=== PATIENT | male | born 1950 | race Hispanic/Latino ===

== ENCOUNTER → 2018-04-24 | Outpatient (CLI) | payer OTHER | END | disposition home or self-care (01) | LOC: OIH 14:20 | PROVIDERS: ATTEND Family Medicine | DX: S22.32XA Fracture of one rib, left side, initial encounter for closed fracture (principal); M16.0 Bilateral primary osteoarthritis of hip; X58.XXXA Exposure to other specified factors, initial encounter; Y93.89 Activity, other specified; Y92.89 Other specified places as the place of occurrence of the external cause; Y99.8 Other external cause status | CPT/HCPCS: 71100; 72170 ==

== ENCOUNTER 2018-11-21 09:33 | Emergency (ER) | payer OTHER ==
[2018-11-21] MEDS ORDERED: BUPIVACAINE/PF 0.5% 30ML VIAL ONE (10:05)
[2018-11-21] MEDS ORDERED: LIDOCAINE HCL 1% 20 ML VIAL ONE (10:05)
[2018-11-21] MEDS ORDERED: TETANUS/DIPHTHERIA TOXOID [ADULT] 0.5 ML VIAL IM ONE (10:05)
[2018-11-21] MEDS ORDERED: CEFAZOLIN SODIUM 1 GM VIAL ONE (10:38)
== END 2018-11-21 11:44 | disposition home or self-care (01) ==
LOC: EDH 09:33
DX: S62.634B Displaced fracture of distal phalanx of right ring finger, initial encounter for open fracture (principal); S61.214A Laceration without foreign body of right ring finger without damage to nail, initial encounter; E78.5 Hyperlipidemia, unspecified; I10 Essential (primary) hypertension; Z90.49 Acquired absence of other specified parts of digestive tract; W23.0XXA Caught, crushed, jammed, or pinched between moving objects, initial encounter; Y93.89 Activity, other specified; Y92.89 Other specified places as the place of occurrence of the external cause; Y99.8 Other external cause status
CPT/HCPCS: 12041; 73140; 90471; 90714; 96372; 99284; J0690; J3490

== ENCOUNTER 2020-08-26 11:32 | Emergency (ER) | payer OTHER ==
[2020-08-26] MEDS ORDERED: KETOROLAC TROMETHAMINE 30MG/ML ONE (12:00)
[2020-08-26] MEDS ORDERED: CYCLOBENZAPRINE HCL 10 MG TABLET ONE (12:00)
== END 2020-08-26 12:58 | disposition home or self-care (01) ==
LOC: EDH 11:32
DX: S20.211A Contusion of right front wall of thorax, initial encounter (principal); S40.011A Contusion of right shoulder, initial encounter; E78.5 Hyperlipidemia, unspecified; I10 Essential (primary) hypertension; Z90.49 Acquired absence of other specified parts of digestive tract; W18.39XA Other fall on same level, initial encounter; Y93.89 Activity, other specified; Y92.89 Other specified places as the place of occurrence of the external cause; Y99.8 Other external cause status
CPT/HCPCS: 71101; 73010; 96372; 99284; J1885

== ENCOUNTER → 2024-01-29 | Outpatient (CLI) | payer OTHER | END | disposition home or self-care (01) | LOC: LAB 12:39 | PROVIDERS: ATTEND Internal Medicine Gastroenterology | DX: R10.32 Left lower quadrant pain (principal) | CPT/HCPCS: 36415; 82565; 84520 ==

== ENCOUNTER → 2024-02-11 | Outpatient (CLI) | payer OTHER ==
[~2024-02-11] MED LIST: IOHEXOL 350 MG/ML 100ML INFUS..BTL IV ONE
== END | disposition home or self-care (01) ==
LOC: RAH 10:32
PROVIDERS: ATTEND Surgery
DX: N40.0 Benign prostatic hyperplasia without lower urinary tract symptoms (principal); R10.32 Left lower quadrant pain
CPT/HCPCS: 74177; Q9967

== ENCOUNTER 2024-04-30 12:38 | Emergency (ER) | payer OTHER ==
[~2024-04-30] VITALS: Ht 165.1 cm; Wt 77.1 kg
[2024-04-30 12:44] VITALS: BP 113/66; PULSE 55; RESP 20; TEMP 98.2
[2024-04-30] MEDS ORDERED: IOHEXOL-350 75 ML VIAL IV ONE (13:09)
[2024-04-30 13:12] LABS: BASOPHILS # (AUTO) 0.04 K/uL (0.00-0.20); BASOPHILS % (AUTO) 0.5 % (0.0-5.0); EOSINOPHILS % (AUTO) 1.2 % (0.0-8.0); HEMATOCRIT 42.9 % (42-54); IMMATURE GRANULOCYTE ABSOLUTE 0.01 K/uL (0-1); LYMPHOCYTES # (AUTO) 1.4 K/uL (1.0-4.8); LYMPHOCYTES % (AUTO) 16.4 % (21.0-51.0); MEAN CORPUSCULAR HEMOGLOBIN 30.3 pg (27.0-33.0); MEAN CORPUSCULAR HGB CONC 33.1 g/dL (32.0-36.0); MEAN CORPUSCULAR VOLUME 91.5 fL (79-99); MONOCYTES % (AUTO) 11.6 % (3.0-13.0); NEUTROPHILS # (AUTO) 5.9 K/uL (1.8-7.7); NEUTROPHILS % (AUTO) 70.2 % (40.0-77.0); PLATELET COUNT (AUTO) 170 K/uL (130-400); RED BLOOD CELL COUNT(AUTO) 4.69 MIL/uL (4.50-6.20); RED CELL DISTRIBUTION WIDTH 12.7 % (11.0-15.5); WHITE BLOOD COUNT (AUTO) 8.4 K/uL (4.8-10.8)
--- NOTE | 2024-04-30 13:16 | ERN ---
General Chief Complaint: Mechanical Fall Stated Complaint: FELL OFF THE LADDER 12FT, BACK PAIN,BLACKOUT Time Seen by MD: 12:44 History of Present Illness Initial Comments 73-year-old male presents for a fall. Patient was on a ladder cutting trees, he fell 12 ft. He landed on his left side. He did lose consciousness according to witness. Patient came to. He is currently GCS 15, he only complains of left shoulder and left chest wall pain. He denies any other injuries. He is ambulatory. Stable vital signs. Medical history: Dyslipidemia No blood thinners. Allergies: Coded Allergies: No Known Allergies (Unverified Allergy, Unknown, 11/21/18) Past Medical History Past Medical History: High Cholesterol Past Surgical History: None ROS Dictation CONSTITUTIONAL: No chills, no fever, no weakness, no diaphoresis, no malaise. HEAD/FACE: No signs of trauma. EENT: No eye pain, no blurred vision, no tearing, no double vision, no ear pain, no ear discharge, no nose pain, no nasal congestion, no throat pain, no throat swelling, no mouth pain. RESPIRATORY: No cough, no orthopnea, no SOB, no stridor, no wheezing. CARDIOVASCULAR: No chest pain, no edema, no palpitations, no syncope. GASTROINTESTINAL/ABDOMINAL: No abdominal pain, no constipation, no diarrhea, no nausea, no vomiting. GENITOURINARY: No abnormal discharge, no dysuria, no frequent urination, no hematuria. No complaints of pain in the genitals. MUSCULOSKELETAL: Left shoulder left chest wall pain INTEGUMENTARY: No change in color, no change in hair/nails, no dryness, no lesion, no lumps, no rash. NEUROLOGICAL/PSYCH: No anxiety, not depressed, no emotional problem, no headache, no numbness, no pre-existing deficit, no history of seizures, no tremors, no weakness. HEMATOLOGIC/LYMPHATIC: Not anemic, no history of blood clots, no apparent bleeding, no bruising, glands not swollen. All Systems Negative, Except as Noted. Physical Exam Physical Exam Dictation VITAL SIGNS: Reviewed. GENERAL APPEARANCE: Alert, oriented x3, no acute distress, obese. HEAD AND FACE: Non-traumatic. EYES: PERRL, pink conjunctivas, eyelid no trauma, anterior chamber clear. EARS: Pinnas intact and no signs of trauma or erythema. Ear canals clear and no discharge. TMs no erythema. NOSE: No discharge, no bleeding. OROPHARYNX: Mouth normal, teeth no caries, tongue pink. Pharynx clear, no erythema. Tonsils no exudates, no abscesses noted. Mucous membrane moist. NECK: Supple, non-tender, no thyromegaly, no masses, no JVD, no bruits. BREAST: Deferred. CHEST: No tenderness, no crepitus, no paradoxical movement, no retractions. LUNGS: Clear, well-ventilated, symmetric, no rales, no wheezing, no rhonchi, no stridor, good breath sounds bilaterally. HEART: Regular rate, regular rhythm, no murmur, no gallops. VASCULAR: No peripheral edema. ABDOMEN: Soft, positive bowel sounds, nondistended, no guarding, nontender, no rebound, no masses no hepatomegaly, no splenomegaly, no Lag[place]'s sign, no hernias. RECTAL: Deferred. GENITAL: Deferred. NEUROLOGICAL: Normal speech, gross motor function intact, gross sensory function intact. MUSCULOSKELETAL: Neck nontender, full range of motion, back nontender, full range of motion. EXTREMITIES: Nontender, full range of motion. SKIN: Color pink, dry, no turgor, no rash, no lacerations, no abrasions, no contusions. LYMPHATICS: Deferred. Results Laboratory and Microbiology Lab and Micro Result Laboratory Tests Test 04/30/24 13:03 04/30/24 13:43 White Blood Count 8.4 K/uL (4.8-10.8) Red Blood Count 4.69 MIL/uL (4.50-6.20) Hemoglobin 14.2 g/dL (14.0-18.0) Hematocrit 42.9 % (42-54) Mean Corpuscular Volume 91.5 fL (79-99) Mean Corpuscular Hemoglobin 30.3 pg (27.0-33.0) Mean Corpuscular Hemoglobin Concent 33.1 g/dL (32.0-36.0) Red Cell Distribution Width 12.7 % (11.0-15.5) Platelet Count 170 K/uL (130-400) Mean Platelet Volume 10.2 fL (7.5-10.5) Immature Granulocyte % (Auto) 0.1 % (0-1) Neutrophils (%) (Auto) 70.2 % (40.0-77.0) Lymphocytes (%) (Auto) 16.4 % (21.0-51.0) L Monocytes (%) (Auto) 11.6 % (3.0-13.0) Eosinophils (%) (Auto) 1.2 % (0.0-8.0) Basophils (%) (Auto) 0.5 % (0.0-5.0) Neutrophils # (Auto) 5.9 K/uL (1.8-7.7) Lymphocytes # (Auto) 1.4 K/uL (1.0-4.8) Monocytes # (Auto) 1.0 K/uL (0.1-1.0) Eosinophils # (Auto) 0.10 K/uL (0.00-0.70) Basophils # (Auto) 0.04 K/uL (0.00-0.20) Absolute Immature Granulocyte (auto 0.01 K/uL (0-1) Nucleated Red Blood Cells 0.0 % (0.0-0.19) Prothrombin Time 10.7 SEC (9.6-11.6) Prothromb Time International Ratio 0.99 (0.85-1.15) Sodium Level 135 mmol/L (136-145) L Potassium Level 4.2 mmol/L (3.5-5.1) Chloride Level 99 mmol/L (101-111) L Carbon Dioxide Level 31 mmol/L (21-32) Blood Urea Nitrogen 17 mg/dL (7-18) Creatinine 1.2 mg/dL (0.5-1.3) Glomerular Filtration Rate Calc 64 mL/min (>90) Random Glucose 107 mg/dL (70-105) H Total Calcium 8.8 mg/dL (8.5-10.1) Total Creatine Kinase 836 U/L (21-232) *H Troponin I High Sensitivity 14.3 ng/L (4-75) Urine Color LIGHT-YELLOW (YELLOW) Urine Appearance CLEAR (CLEAR) Urine pH 5.0 (5.0-8.0) Urine Specific [place] 1.021 (1.001-1.031) Urine Protein 10 mg/dL (NEGATIVE) H Urine Glucose (UA) NEGATIVE mg/dL (NEGATIVE) Urine Ketones NEGATIVE mg/dL (NEGATIVE) Urine Occult Blood NEGATIVE (NEGATIVE) Urine Nitrate NEGATIVE (NEGATIVE) Urine Bilirubin NEGATIVE mg/dL (NEGATIVE) Urine Urobilinogen 0.2 mg/dL (0.2-1.0) Urine Leukocyte Esterase NEGATIVE Michelle/uL Urine RBC 2-5 /HPF (0-1) H Urine WBC 2-5 /HPF (0-1) H Urine Bacteria None /HPF (None Seen) MDM CC: L shoulder pain, fall Historian: pateint Comorbidities: DLD Limitations: none VSS Differential diagnosis: head injury, shoulder injury, rib fx, multisystem trauma CT head per my independent interpretation shows no acute bleeding CT cervical spine without contrast per my independent interpretation shows no obvious fractures. CT scan of the abdomen and pelvis with contrast shows no acute bleeding or major abnormalities. CBC: Normal. CMP: Stable electrolytes, CK came back at 836, mildly elevated. Given 1 L of normal saline. 15mg IV toradol No life threats at this time due to the trauma. Patient offered observation admission but prefers to go home at this time REASON: fall ORDERING PHYSICIAN: YVONNE KING DO PROCEDURE: HEAD WO - CT HEAD/BRAIN W/O CONTRAST CT HEAD/BRAIN W/O CONTRAST HISTORY: Status post fall COMPARISON: None TECHNIQUE: Multiple sequential axial images of the head were obtained from the base of the skull through vertex. Patient was not given contrast through intravenous route. FINDINGS: The ventricles and extraventricular CSF spaces are dilated consistent with cerebral atrophy. Nonspecific white matter changes seen. There is no midline shift, mass effect or herniation. No acute intracranial bleed is seen. Visualized portion of the paranasal sinuses are grossly within normal limits. IMPRESSION: 1. No acute intracranial bleed is seen. 2. Atrophy with white matter changes. REASON: fall ORDERING PHYSICIAN: YVONNE KING DO PROCEDURE: C SPIN WO - CT CERVICAL SPINE W/O CONTRAST CT CERVICAL SPINE W/O CONTRAST HISTORY: Status post fall COMPARISON: None TECHNIQUE: Multiple sequential axial images of the cervical spine were obtained including post processing sagittal and coronal reconstruction images. Patient was not given contrast through intravenous route. FINDINGS: There is straightening of normal lordotic cervical curvature which may be related to muscle spasm or positioning. There are degenerative changes with cervical spine spondylosis. There is no loss of vertebral height. Evaluation for disc and cord pathology is limited with CT study. No evidence of fracture or dislocation is seen. IMPRESSION: 1. No fracture is seen. DJD with cervical spine spondylosis. REASON: fall ORDERING PHYSICIAN: YVONNE KING DO PROCEDURE: CAP W - CT CHEST/ABD/PELV W/CONRAST CT CHEST/ABD/PELV W/CONRAST HISTORY: Status post fall COMPARISON: None TECHNIQUE: Multiple sequential axial images of the chest were obtained from the thoracic inlet through upper abdomen. Patient was given 75 cc of Omnipaque through intravenous route. FINDINGS: There is no evidence of pulmonary nodule or parenchymal disease. No pleural effusion or pericardial effusion is seen. There is no evidence of pneumothorax. There are normal size mediastinal and hilar lymph nodes. The heart is not enlarged. Coronary arterial calcifications are seen. COPD changes are seen. There are mild interstitial fibrosis. Degenerative changes of the thoracolumbar spine are present. There is no evidence of adrenal nodule. IMPRESSION: 1. No evidence of pulmonary nodule or effusion is seen. CT CHEST/ABD/PELV W/CONRAST HISTORY: Status post fall COMPARISON: None TECHNIQUE: Multiple sequential axial images of the abdomen and pelvis were obtained from the dome of the diaphragm through symphysis pubis. Patient was given 75 cc of Omnipaque through intravenous route. Oral contrast was not given. FINDINGS: Liver measures 16 cm. Small bowel dilatation is seen with fluid-filled may be related to enteritis versus ileus. There is diverticulosis. The liver, spleen, adrenal glands and pancreas are unremarkable. There is no evidence of hydronephrosis bilaterally. No evidence of renal stone is seen. Fecal material is seen in the colon. There are normal size retroperitoneal and mesenteric lymph nodes. No ascites is seen. Atherosclerotic changes are present. Appendix is not well seen. Pelvic sidewalls are symmetric bilaterally. Bladder is well distended without wall thickening. IMPRESSION: 1. No acute findings. ED Course Orders Procedure Category Date Status Time Ct Head/Brain W/O CT 04/30/24 Resulted Contrast 12:55 Ct Cervical Spine W/O CT 04/30/24 Resulted Contrast 12:55 Ct Chest/Abd/Pelv CT 04/30/24 Resulted W/Conrast 12:55 Cardiac Panel LAB 04/30/24 Complete 12:55 Cbc With Differential LAB 04/30/24 Complete 12:55 Basic Metabolic Panel LAB 04/30/24 Complete 12:55 Prothrombin Time With LAB 04/30/24 Complete INR 12:55 Urinalysis Profile LAB 04/30/24 Complete 12:55 Iohexol (Omnipaque) PHA 04/30/24 Complete 13:09 Shoulder Comp 2+Vws Lt RAD 04/30/24 Taken 13:16 0.9%Nacl 1000ml (Ns PHA 04/30/24 Complete 1000ml) 14:00 Ketorolac PHA 04/30/24 Complete Tromethamine 15mg/Ml 14:00 Current Medications Medications (Trade) Dose Ordered Sig/Bryan Route PRN Reason Start Time Stop Time Status Last Admin Dose Admin Iohexol (Omnipaque) 75 ml STK-MED ONCE IV 04/30/24 13:09 04/30/24 13:10 DC Ketorolac Tromethamine (toRADol) 15 mg ONCE ONCE IV 04/30/24 14:00 04/30/24 14:01 DC 04/30/24 14:09 Sodium Chloride 1,000 ml @ 0 mls/hr ONCE ONCE IV 04/30/24 14:00 04/30/24 14:01 DC 04/30/24 14:09 Vital Signs Date Time Temp Pulse Resp B/P (MAP) Pulse Ox O2 Delivery O2 Flow Rate FiO2 04/30/24 12:44 98.2 55 20 113/66 95 Room Air DX & DISP Disposition: Discharge Departure Impression: Primary Impression: Fall Additional Impression: Shoulder injury Condition: Stable Additional Instructions: The CT scan of your head, spine, chest, abdomen, and pelvis did not show any fractures or major abnormalities. The x-ray did not show any fractures or major abnormalities. Your symptoms are consistent with soft tissue injury. Apply ice to the affected area for at least 20 minutes twice per day for swelling. You can take 1000 mg of Tylenol or 600 mg of ibuprofen as needed for pain. These medications are [id number]. Please immediately return to the emergency department if you have any concerns. Referrals: RAMILA HINOJOSA MD (PCP) YVONNE KING DO Apr 30, 2024 13:16
[2024-04-30 13:26] LABS: CREATININE 1.2 mg/dL (0.5-1.3); POTASSIUM 4.2 mmol/L (3.5-5.1)
--- NOTE | 2024-04-30 13:39 | HMCIMG ---
CT HEAD/BRAIN W/O CONTRAST HISTORY: Status post fall COMPARISON: None TECHNIQUE: Multiple sequential axial images of the head were obtained from the base of the skull through vertex. Patient was not given contrast through intravenous route. FINDINGS: The ventricles and extraventricular CSF spaces are dilated consistent with cerebral atrophy. Nonspecific white matter changes seen. There is no midline shift, mass effect or herniation. No acute intracranial bleed is seen. Visualized portion of the paranasal sinuses are grossly within normal limits. IMPRESSION: 1. No acute intracranial bleed is seen. 2. Atrophy with white matter changes. CT was performed with one or more following dose reduction techniques: automated exposure control, adjustment of the mA and kv according to patient's size, or use of a iterative reconstruction technique.
--- NOTE | 2024-04-30 13:39 | HMCIMG ---
CT CERVICAL SPINE W/O CONTRAST HISTORY: Status post fall COMPARISON: None TECHNIQUE: Multiple sequential axial images of the cervical spine were obtained including post processing sagittal and coronal reconstruction images. Patient was not given contrast through intravenous route. FINDINGS: There is straightening of normal lordotic cervical curvature which may be related to muscle spasm or positioning. There are degenerative changes with cervical spine spondylosis. There is no loss of vertebral height. Evaluation for disc and cord pathology is limited with CT study. No evidence of fracture or dislocation is seen. IMPRESSION: 1. No fracture is seen. DJD with cervical spine spondylosis. CT was performed with one or more following dose reduction techniques: automated exposure control, adjustment of the mA and kv according to patient's size, or use of a iterative reconstruction technique.
--- NOTE | 2024-04-30 13:42 | HMCIMG ---
CT CHEST/ABD/PELV W/CONRAST HISTORY: Status post fall COMPARISON: None TECHNIQUE: Multiple sequential axial images of the chest were obtained from the thoracic inlet through upper abdomen. Patient was given 75 cc of Omnipaque through intravenous route. FINDINGS: There is no evidence of pulmonary nodule or parenchymal disease. No pleural effusion or pericardial effusion is seen. There is no evidence of pneumothorax. There are normal size mediastinal and hilar lymph nodes. The heart is not enlarged. Coronary arterial calcifications are seen. COPD changes are seen. There are mild interstitial fibrosis. Degenerative changes of the thoracolumbar spine are present. There is no evidence of adrenal nodule. IMPRESSION: 1. No evidence of pulmonary nodule or effusion is seen. CT CHEST/ABD/PELV W/CONRAST HISTORY: Status post fall COMPARISON: None TECHNIQUE: Multiple sequential axial images of the abdomen and pelvis were obtained from the dome of the diaphragm through symphysis pubis. Patient was given 75 cc of Omnipaque through intravenous route. Oral contrast was not given. FINDINGS: Liver measures 16 cm. Small bowel dilatation is seen with fluid-filled may be related to enteritis versus ileus. There is diverticulosis. The liver, spleen, adrenal glands and pancreas are unremarkable. There is no evidence of hydronephrosis bilaterally. No evidence of renal stone is seen. Fecal material is seen in the colon. There are normal size retroperitoneal and mesenteric lymph nodes. No ascites is seen. Atherosclerotic changes are present. Appendix is not well seen. Pelvic sidewalls are symmetric bilaterally. Bladder is well distended without wall thickening. IMPRESSION: 1. No acute findings. CT was performed with one or more following dose reduction techniques: automated exposure control, adjustment of the mA and kv according to patient's size, or use of a iterative reconstruction technique.
[2024-04-30 13:55] LABS: INR 0.99 (0.85-1.15); PROTHROMBIN TIME 10.7 SEC (9.6-11.6)
[2024-04-30] MEDS: ketOROlac 15MG/ML VIAL (15MG/ML) IV ONE (14:09)
[2024-04-30] MEDS: 0.9%NACL 1000ML 1,000 ML IV ONE (14:09)
[2024-04-30 14:27] LABS: APPEARANCE,URINE CLEAR (CLEAR); BILIRUBIN,URINE NEGATIVE (NEGATIVE); COLOR,URINE LIGHT-YELLOW (YELLOW); GLUCOSE, URINE (UA) NEGATIVE (NEGATIVE); KETONES,URINE NEGATIVE (NEGATIVE); LEUKOCYTE ESTERASE ,URINE NEGATIVE Leu/uL (NEGATIVE); NITRATE,URINE NEGATIVE (NEGATIVE); OCCULT BLOOD,URINE NEGATIVE (NEGATIVE); PROTEIN,URINE 10 mg/dL (NEGATIVE); UROBILINOGEN,URINE 0.2 mg/dL (0.2-1.0)
[2024-04-30 14:28] LABS: ADD UA MICROSCOPIC YES
[2024-04-30 14:29] LABS: MUCUS,URINE RARE LPF (None Seen)
--- NOTE | 2024-04-30 14:53 | HMCIMG ---
SHOULDER COMP 2+VWS LT HISTORY: Status post fall COMPARISON: 04/24/2018 TECHNIQUE: 2 images of left shoulder were obtained. FINDINGS: Irregularity is seen involving the left mid clavicle suggestive of of old fracture also present on previous x-ray from April 24, 2018. No other fracture is seen. No dislocation is seen. Bony osteopenia is seen. Degenerative changes are seen. IMPRESSION: 1. Findings as described above.
== END 2024-04-30 15:30 | disposition home or self-care (01) ==
LOC: EDH 12:38
DX: S49.82XA Other specified injuries of left shoulder and upper arm, initial encounter (principal); R07.89 Other chest pain; E78.00 Pure hypercholesterolemia, unspecified; M47.812 Spondylosis without myelopathy or radiculopathy, cervical region; W11.XXXA Fall on and from ladder, initial encounter; Y93.89 Activity, other specified; Y92.89 Other specified places as the place of occurrence of the external cause; Y99.8 Other external cause status
CPT/HCPCS: 99285; 70450; 96374; 82550; 84484; 80048; 85025; 85610; 81001; 36415; 73030; 72125; 71260; 74177; J7030; J1885; Q9967